=== PATIENT | female | born 2000 | race Two or more races ===

== ENCOUNTER → 2024-07-24 | Outpatient (CLI) | payer OTHER ==
[~2024-07-24] MED LIST: ACET-683 PO; IBUP80TA PO; ONDA-282 PO; PRENTAB9 PO
[2024-07-24 16:07] LABS: BASO # 0.1 10^3/uL (0.0-0.2); BASO % 0.7 % (0.0-1.0); EOS # 0.2 10^3/uL (0.0-0.5); EOS % 2.1 % (0.0-3.0); HEMATOCRIT 39.3 % (36.0-47.0); HEMOGLOBIN 13.2 g/dl (12.0-15.5); MEAN CORPUSCULAR HGB CONC 33.6 g/dl (32.0-36.5); MEAN CORPUSCULAR VOLUME 83.3 fl (80.0-96.0); MONO # 0.8 10^3/uL (0.0-0.8); NEUTROPHILS # 5.6 10^3/uL (1.5-8.5); PLATELET COUNT, AUTOMATED 320 10^3/uL (150-450); RED BLOOD COUNT 4.72 10^6/uL (4.00-5.40); WHITE BLOOD COUNT 9.6 10^3/uL (4.0-10.0)
[2024-07-24 16:13] LABS: ERYTHROCYTE SEDIMENTATION RATE 10 mm/hr (0-20)
[2024-07-24 16:29] LABS: ALBUMIN 3.5 G/DL (3.2-5.2); ALKALINE PHOSPHATASE 71 U/L (35-104); ALT/SGPT 25 U/L (7.0-40); AST/SGOT < 8 U/L (<34); BILIRUBIN,TOTAL 0.4 MG/DL (0.3-1.2); BLOOD UREA NITROGEN 12 MG/DL (9-23); CALCIUM LEVEL 8.9 MG/DL (8.5-10.1); CARBON DIOXIDE LEVEL 28 MMOL/L (20-31); CHLORIDE LEVEL 108 MMOL/L (98-107); CREATININE FOR GFR 0.79 MG/DL (0.55-1.30); GLOMERULAR FILTRATION RATE > 60.0 (>60); GLUCOSE, FASTING 107 MG/DL (60-100); SODIUM LEVEL 140 MMOL/L (136-145); TOTAL PROTEIN 7.5 G/DL (5.7-8.2)
[2024-07-24 16:31] LABS: FOLATE 22.6 NG/ML (>5.4); THYROID STIMULATING HORMONE 1.353 uIU/ML (0.55-4.78)
[2024-07-24 16:32] LABS: VITAMIN B12 LEVEL 548 PG/ML (211-911)
[2024-07-29 10:22] LABS: ANA SCREEN, IFA NEGATIVE (NEGATIVE)
[2024-07-29 23:53] LABS: VITAMIN B6,PYRIDOXAL PHOSPHATE 20.3 ng/mL (2.1-21.7)
[2024-07-31 08:23] LABS: VITAMIN B1 LEVEL WHOLE BLOOD 150 nmol/L (78-185)
[2024-07-31 19:41] LABS: VITAMIN E(ALPHA TOCOPHEROL) 12.9 mg/L (5.7-19.9); VITAMIN E(GAMMA TOCOPHEROL) < 1.0 mg/L (<=4.3)
== END ==
LOC: M LAB 15:14
PROVIDERS: ATTEND Psychiatry & Neurology Neurology
DX: E53.8 Deficiency of other specified B group vitamins (principal); E07.9 Disorder of thyroid, unspecified; R41.3 Other amnesia